=== PATIENT | male | born 1945 | race Caucasian/White ===

== ENCOUNTER → 2019-05-21 14:40 | Outpatient (CLI) | payer MEDICARE, SELFPAY ==
[2019-05-21 15:26] LABS: Add Manual Diff / Slide Review NO; Basophils Absolute Auto 100 /uL (0-100); Eosinophils Absolute Auto 200 /uL (0-450); Eosinophils Percent Auto 2.2 % (2-4); Hematocrit 41.9 % (41-53); Hemoglobin 13.5 g/dL (13.5-17.5); Lymphocytes Absolute Auto 1000 /uL (1100-4500); Lymphocytes Percent Auto 11.1 % (25-40); Mean Corpuscular HGB Conc 32.1 % (30-36); Mean Corpuscular Hemoglobin 28.9 PG (26-34); Monocytes Absolute Auto 600 /uL (0-900); Monocytes Percent Auto 6.4 % (3-14); Neutrophils Absolute Auto 7000 /uL (1500-7000); Neutrophils Percent Auto 79.3 % (50-75); Platelet Count 275 X10^3/uL (150-400); Red Blood Cell Count 4.65 X10^6/uL (4.5-5.9); Red Cell Distribution Width 17.6 % (11.6-14.8); White Blood Cell Count 8.8 X10^3/uL (4.5-11.0)
[2019-05-21 15:41] LABS: Hemoglobin A1C% w Est Avg Glu 6.1 % (4.0-6.0)
[2019-05-21 16:09] LABS: Alanine Aminotransferase 105 IU/L (<50); Albumin 3.7 g/dL (3.5-5.0); Albumin Globulin Ratio 1.6 (1.0-2.8); Alkaline Phosphatase 172 U/L (38-126); Aspartate Aminotransferase 103 IU/L (17-59); BUN Creatinine Ratio 24.4 (6-22); Bilirubin Total 0.9 mg/dL (0.2-1.3); Blood Urea Nitrogen 39 mg/dL (9-20); Calcium 9.6 mg/dL (8.4-10.2); Carbon Dioxide 25 mmol/L (22-32); Chloride 98 mmol/L (98-107); Cholesterol 127 mg/dL (140-199); Estimated Glomerular Filt Rate 42.7 mL/min (>60); Globulin 2.3 g/dL (1.7-4.1); Glucose 94 mg/dL (80-110); HDL Cholesterol 30 mg/dL (40-60); HEMOLYSIS < 15 (0-50); LDL Cholesterol Calculated 79 mg/dL (<100); Sodium 134 mmol/L (137-145); Triglycerides 88 mg/dL (35-150)
[2019-05-21 16:24] LABS: Vitamin D 25 Hydroxy (D3) 18.5 ng/mL (30.0-100.0)
[2019-05-21 16:40] LABS: Prostate Specific Antigen 1.35 ng/mL (0.10-4.00)
[2019-05-21 16:42] LABS: TSH w/ Reflex to FT4 3.87 uIU/mL (0.47-4.68)
== END ==
PROVIDERS: PCP Family Medicine; Visit Provider Family Medicine
DX: Z12.5 Encounter for screening for malignant neoplasm of prostate (principal); Z13.29 Encounter for screening for other suspected endocrine disorder; E55.9 Vitamin D deficiency, unspecified; E66.9 Obesity, unspecified; E78.5 Hyperlipidemia, unspecified; I10 Essential (primary) hypertension
CPT/HCPCS: 36415; 80053; 80061; 82306; 83036; 84153; 84443; 85025

== ENCOUNTER 2019-06-04 09:26 | Emergency (ER) | payer MEDICARE, SELFPAY ==
[2019-06-04] VITALS (12 sets, daily range): BP systolic 94–136; BP diastolic 63–89; PULSE 104–117; RESP 13–23; TEMP 37.1; O2SAT 95–100
--- NOTE | 2019-06-04 09:33 | DI.RAD.S_ITS ---
PROCEDURE: XR CHEST 1V INDICATIONS: fatigue, weakness TECHNIQUE: One view of the chest was acquired. COMPARISON: [facility], CR, XR CHEST 2VW, 03/03/2016, 7:09. FINDINGS: Surgical changes and devices: A left-sided cardiac pacer/defibrillator is again evident. Lungs and pleura: Lungs are clear. No pleural effusions or pneumothorax. Mediastinum: Mediastinal contours appear normal. Heart size is markedly enlarged. Bones and chest wall: No suspicious bony lesions. Overlying soft tissues appear unremarkable. IMPRESSION: Marked cardiomegaly without overt heart failure. Dictated by: Dc Barnes M.D. on 06/04/2019 at 9:41 Approved by: Dc Barnes M.D. on 06/04/2019 at 9:41
--- NOTE | 2019-06-04 09:33 | DI.US.S_ITS ---
PROCEDURE: US PERIPH VENOUS LOW EXTREM BI INDICATIONS: SEVERE PAIN BILATERAL LOWER EXTREMITITES TECHNIQUE: Real-time imaging, as well as color and pulse Doppler interrogation, were performed of the deep veins of both legs from the inguinal ligament to the popliteal fossa. COMPARISON: None. FINDINGS: Right: The common femoral, femoral and popliteal veins are normally compressible, and free of intraluminal thrombus. Color and pulse Doppler demonstrate normal phasic intravascular flow. There is normal augmentation response to distal compression maneuver. Left: The common femoral, femoral and popliteal veins are normally compressible, and free of intraluminal thrombus. Color and pulse Doppler demonstrate normal phasic intravascular flow. There is normal augmentation response to distal compression maneuver. IMPRESSION: No evidence of deep vein thrombosis of the bilateral lower extremities. Dictated by: Dc Barnes M.D. on 06/04/2019 at 9:24 Approved by: Dc Barnes M.D. on 06/04/2019 at 9:26
[2019-06-04 10:00] LABS: Add Manual Diff / Slide Review NO; Basophils Absolute Auto 0 /uL (0-100); Basophils Percent Auto 0.2 % (0-2); Eosinophils Absolute Auto 0 /uL (0-450); Hematocrit 48.4 % (41-53); Hemoglobin 15.7 g/dL (13.5-17.5); Lymphocytes Absolute Auto 400 /uL (1100-4500); Lymphocytes Percent Auto 1.6 % (25-40); Mean Corpuscular HGB Conc 32.4 % (30-36); Mean Corpuscular Hemoglobin 28.7 PG (26-34); Mean Corpuscular Volume 88.6 fL (80-100); Monocytes Absolute Auto 500 /uL (0-900); Monocytes Percent Auto 2.1 % (3-14); Neutrophils Absolute Auto 23500 /uL (1500-7000); Neutrophils Percent Auto 96.1 % (50-75); Platelet Count 333 X10^3/uL (150-400); Red Blood Cell Count 5.46 X10^6/uL (4.5-5.9); Red Cell Distribution Width 18.3 % (11.6-14.8); White Blood Cell Count 24.5 X10^3/uL (4.5-11.0)
[2019-06-04 10:05] LABS: INR 2.6 (0.9-1.3); Prothrombin Time 30.8 SECONDS (10.1-12.7)
[2019-06-04 10:11] LABS: Alanine Aminotransferase 591 IU/L (<50); Albumin 3.8 g/dL (3.5-5.0); Albumin Globulin Ratio 1.3 (1.0-2.8); Alkaline Phosphatase 289 U/L (38-126); Aspartate Aminotransferase 413 IU/L (17-59); BUN Creatinine Ratio 40.5 (6-22); Blood Urea Nitrogen 77 mg/dL (9-20); Calcium 9.1 mg/dL (8.4-10.2); Carbon Dioxide 30 mmol/L (22-32); Chloride 90 mmol/L (98-107); Creatine Kinase 89 U/L (55-170); Glucose 158 mg/dL (80-110); Magnesium 2.2 mg/dL (1.6-2.3); Potassium 4.7 mmol/L (3.4-5.1); Sodium 132 mmol/L (137-145); Total Protein 6.8 g/dL (6.3-8.2)
[2019-06-04 10:23] LABS: B Type Natriuretic Peptide 3200 (<100)
[2019-06-04 10:24] LABS: HEMOLYSIS < 15 (0-50)
[2019-06-04 10:27] LABS: Procalcitonin 3.73 ng/mL (<0.5)
--- NOTE | 2019-06-04 10:36 | ED_ITS ---
HPI - Neuro Symptoms/Deficit <Chance Gomez DO - Last Filed: 06/04/19 14:46> General Chief Complaint: Neuro Symptoms/Deficit Stated Complaint: Confusion, weakness Time Seen by Provider: 06/04/19 09:26 Source: EMS Mode of arrival: EMS Limitations: no limitations History of Present Illness HPI Narrative: 73-year-old male former smoker with COPD, CHF, pacemaker and history of clots presents by EMS for generalized weakness. The patient lives in a trailer at the [facility] and slid off his bed yesterday because he was weak. He was too weak to get off the ground and laid there for somewhere between 12 and 24 hours before EMS was called. He denies any injury as a consequence of his fall. Paramedics report that he was covered in urine and feces and his trailer was in significant disrepair. Patient denies any fever or chills. He says he has been feeling progressively weak and poor over the past few weeks. He denies nausea, vomiting or diarrhea. He denies any dysuria, frequency or urgency Onset (ago): week(s) Severity: moderate Quality: weak Relieving factors: none On Anticoagulants: Yes Associated symptoms: weakness Treatments Prior to Arrival: none Related Data Home Medications Medication Instructions Recorded Confirmed fluticasone furoate-vilanterol 1 inh INHALATION DAILY 06/04/19 06/04/19 [Yovany Lawrence] Previous Rx's Medication Instructions Recorded albuterol sulfate 90 mcg/actuation 2 puff INHALATION Q6H PRN #8 gram 05/09/19 aerosol inhaler apixaban 5 mg tablet 5 mg PO BID #30 tab 05/21/19 bisoprolol fumarate 10 mg tablet 10 mg PO DAILY #30 tab 05/21/19 losartan 50 mg tablet 50 mg PO DAILY #30 tab 05/21/19 budesonide-formoterol HFA 160 2 puff INHALATION BID #10.2 gram 05/24/19 mcg-4.5 mcg/actuation aerosol inhaler tramadol 50 mg tablet 50 mg PO TID #90 tab 05/29/19 furosemide 40 mg tablet 80 mg PO QID #360 tab 05/31/19 Allergies Allergy/AdvReac Type Severity Reaction Status Date / Time No Known Drug Allergies Allergy Verified 06/04/19 09:53 Review of Systems <Chance Gomez DO - Last Filed: 06/04/19 14:46> Constitutional Constitutional: Denies chills, Denies fatigue, Denies fever(s), Denies frequent falls, Denies lethargy and Denies weakness Eyes Eyes: Denies change in vision, Denies eye discharge, Denies irritation and Denies loss of vision ENT Ears, Nose, Mouth, and Throat: Denies change in voice, Denies dizziness, Denies neck pain, Denies sore throat and Denies throat swelling Cardiovascular Cardiovascular: Denies chest pain, Denies irregular heart rhythm, Denies lightheadedness, Denies palpitations, Reports dyspnea, Denies dyspnea on exertion and Denies orthopnea Respiratory Respiratory: Reports dyspnea, Denies dyspnea on exertion and Denies wheezing Gastrointestinal Gastrointestinal: Denies abdominal pain, Denies change in bowel habits, Denies diarrhea, Denies nausea and Denies vomiting Genitourinary Genitourinary: Denies hematuria, Denies flank pain, Denies urinary incontinence and Denies urinary urgency Musculoskeletal Musculoskeletal: Denies back pain, Denies muscle weakness, Denies neck pain, Denies numbness and Denies tingling Integumentary/Breasts Skin/Breast: Denies pruritus, Denies erythema, Denies rash and Denies wounds Neurologic Neurologic: Denies behavioral changes, Denies confusion, Denies dizziness, Denies frequent falls, Denies loss of vision, Denies numbness, Denies tingling and Denies weakness Psychiatric Psychiatric: Denies anxiety, Denies behavioral changes, Denies confusion, Denies depression, Denies homicidal ideation and Denies suicidal ideation Endocrine Endocrine: Denies fatigue, Denies flushing and Denies palpitations Hematologic/Lymphatic Hematologic/Lymphatic: Denies easy bruising Allergic/Immunologic Allergic/Immunologic: Denies urticaria, Denies throat swelling and Denies whee zing Patient History <Chance Gomez DO - Last Filed: 06/04/19 14:46> Medical History Allergies (Chronic) Ankle pain (Chronic) Asthma dependent on inhaled steroids (Chronic ~1969) Chicken pox (Resolved) Congestive heart failure (Acute) COPD (chronic obstructive pulmonary disease) (Chronic) Foot pain (Chronic) Hyperlipidemia (Chronic) Hypertension (Chronic) Infection of nail bed of finger of left hand (Acute) Ischemic cardiomyopathy (Acute) Measles (Resolved) Mumps (Resolved) Skin breakdown (Acute) Surgical History Pacemaker (Inactive) Family History Father Hypertension Mother Congestive heart failure Hyperlipidemia Hypertension Sister Substance abuse Sister Substance abuse Social History Smoking Status: Never smoker Smoking Status: Never smoker Exam <Chance Gomez DO - Last Filed: 06/04/19 14:46> Narrative Exam Narrative: GENERAL: [73] year old patient appears stated age. Signifi cantly obese, smells of urine. Awake and alert, GCS 15. HEAD: Atraumatic. Normocephalic. EYES: Pupils equal round and reactive. Extraocular motions intact. No scleral icterus. No injection or drainage. ENT: Nose without bleeding, purulent drainage. Throat without erythema, tonsillar hypertrophy or exudate. Airway patent. NECK: Trachea midline. Non tender CARDIOVASCULAR: Regular rate and rhythm without murmurs, gallops, or rubs. RESPIRATORY: Decreased breath sounds bilaterally, faint crackles in bilateral bases GASTROINTESTINAL: Abdomen soft, non-tender, nondistended. EXTREMITIES: 2+ pitting edema bilateral lower extremities, tense, mild erythema on the right lower extremity with a scabbed over and healing wound on the right anterior [place] which he states has been there for quite some time. BACK: Nontender without deformity or crepitance. No flank tenderness. NEURO: AOx3. SKIN: No rash or erythema of visible areas other than that which is noted above Initial Vital Signs Initial Vital Signs: Vital Signs Temperature 98.8 F 06/04/19 09:21 Pulse Rate 108 H 06/04/19 09:21 Respiratory Rate 23 06/04/19 09:21 Blood Pressure 123/89 06/04/19 09:21 Pulse Oximetry 98 06/04/19 09:21 <Saskia Rojas MD - Last Filed: 06/04/19 16:14> Initial Vital Signs Initial Vital Signs: Vital Signs Temperature 98.8 F 06/04/19 09:21 Pulse Rate 108 H 06/04/19 09:21 Respiratory Rate 23 06/04/19 09:21 Blood Pressure 123/89 06/04/19 09:21 Pulse Oximetry 98 06/04/19 09:21 Course <Chancequang Gomez DO - Last Filed: 06/04/19 14:46> Orders Ordered: ED Orders 06/04/19 09:33 US periph venous low extrem bi Stat XR chest 1V Stat 06/04/19 09:46 B Type Natriuretic Peptide Stat Complete Blood Count AUTO DIFF Stat Comprehensive Metabolic Panel Stat D Dimer Stat Lactate (Lactic Acid) Stat Magnesium Stat Partial Thromboplastin Time Stat Procalcitonin Stat Prothrombin Time INR Stat Troponin & CK Cardiac Panel Stat 06/04/19 09:52 EKG-12 Lead Stat 06/04/19 10:15 Blood Culture Stat 06/04/19 11:18 Troponin I Stat 06/04/19 11:24 UA Complete [Urinalysis and Microscopic] Stat 06/04/19 11:29 EKG-12 Lead Stat 06/04/19 11:30 CT head/brain wo con Stat 06/04/19 12:21 CT angio chest PE protocol Stat 06/05/19 05:00 Hemoglobin and Hematocrit DAILY Heparin Sodium/Dextrose (Heparin Drip) 25,000 unit in 500 mls @ 27.216 mls/hr IV CONT KENNA; Protocol Last Admin: 06/04/19 11:57 Dose: 12 units/kg/hr, 27.216 mls/hr Documented by: DENISE Discontinued Medications Aspirin (Aspirin Chew) 324 mg PO NOW ONE Stop: 06/04/19 13:04 Last Admin: 06/04/19 14:00 Dose: 324 mg Documented by: DENISE Furosemide (Lasix) 40 mg IV NOW ONE Stop: 06/04/19 10:35 Last Admin: 06/04/19 11:01 Dose: 40 mg Documented by: DENISE Heparin Sodium (Porcine) (Heparin) 5,000 unit IV NOW ONE Stop: 06/04/19 11:40 Last Admin: 06/04/19 11:57 Dose: 5,000 unit Documented by: DENISE Ceftriaxone Sodium/Dextrose (Rocephin) 2 gm in 50 mls @ 100 mls/hr IV NOW ONE Stop: 06/04/19 11:04 Last Infusion: 06/04/19 11:31 Dose: 0 mls/hr Documented by: Admin: 06/04/19 11:01 Dose: 100 mls/hr Documented by: DENISE Sodium Chloride (Normal Saline 0.9%) 2,168.61 mls @ 722.87 mls/hr 30 ml/kg infuse over 3 hr (2168.61 ml) IV NOW ONE Stop: 06/04/19 15:53 Last Admin: 06/04/19 13:50 Dose: 722.87 mls/hr Documented by: DENISE Consultations Consultation #1: Discussed case with on-call Cardiology whom requests heparin denise zayra and heparin drip and transfer to facility with cardiac care call to [facility]. NO available beds currently Possibility of severe sepsis recognized upon receipt of lactate receipt at 0946. Unclear picture. Fluids at 30mL/kg of IBW verbally ordered at 1205, patient out of department, manually entered at 1256. Mitchell called on receipt of CTA findings Vital Signs Vital signs: Vital Signs - 8 hr 06/04/19 09:21 06/04/19 10:00 06/04/19 10:30 Temperature 98.8 F Pulse Rate 108 H 109 H 110 H Respiratory Rate 23 22 21 Blood Pressure 123/89 Blood Pressure [Right Arm] 136/67 108/74 Pulse Oximetry 98 99 06/04/19 11:30 06/04/19 12:00 06/04/19 12:54 Temperature Pulse Rate 113 H 114 H 110 H Respiratory Rate 23 22 13 Blood Pressure Blood Pressure [Right Arm] 122/74 121/81 121/69 Pulse Oximetry 100 99 95 06/04/19 14:00 Temperature Pulse Rate 113 H Respiratory Rate 18 Blood Pressure Blood Pressure [Right Arm] 123/85 Pulse Oximetry 99 <Saskia Rojas MD - Last Filed: 06/04/19 16:14> Orders Ordered: ED Orders 06/04/19 09:33 US periph venous low extrem bi Stat XR chest 1V Stat 06/04/19 09:46 B Type Natriuretic Peptide Stat Complete Blood Count AUTO DIFF Stat Comprehensive Metabolic Panel Stat D Dimer Stat Lactate (Lactic Acid) Stat Magnesium Stat Partial Thromboplastin Time Stat Procalcitonin Stat Prothrombin Time INR Stat Troponin & CK Cardiac Panel Stat 06/04/19 09:52 EKG-12 Lead Stat 06/04/19 10:15 Blood Culture Stat 06/04/19 11:18 Troponin I Stat 06/04/19 11:24 UA Complete [Urinalysis and Microscopic] Stat 06/04/19 11:29 EKG-12 Lead Stat 06/04/19 11:30 CT head/brain wo con Stat 06/04/19 12:21 CT angio chest PE protocol Stat 06/05/19 05:00 Hemoglobin and Hematocrit DAILY Heparin Sodium/Dextrose (Heparin Drip) 25,000 unit in 500 mls @ 27.216 mls/hr IV CONT KENNA; Protocol Last Admin: 06/04/19 11:57 Dose: 12 units/kg/hr, 27.216 mls/hr Documented by: DENISE Discontinued Medications Aspirin (Aspirin Chew) 324 mg PO NOW ONE Stop: 06/04/19 13:04 Last Admin: 06/04/19 14:00 Dose: 324 mg Documented by: DENISE Furosemide (Lasix) 40 mg IV NOW ONE Stop: 06/04/19 10:35 Last Admin: 06/04/19 11:01 Dose: 40 mg Documented by: DENISE Heparin Sodium (Porcine) (Heparin) 5,000 unit IV NOW ONE Stop: 06/04/19 11:40 Last Admin: 06/04/19 11:57 Dose: 5,000 unit Documented by: DENISE Ceftriaxone Sodium/Dextrose (Rocephin) 2 gm in 50 mls @ 100 mls/hr IV NOW ONE Stop: 06/04/19 11:04 Last Infusion: 06/04/19 11:31 Dose: 0 mls/hr Documented by: Admin: 06/04/19 11:01 Dose: 100 mls/hr Documented by: DENISE Sodium Chloride (Normal Saline 0.9%) 2,168.61 mls @ 722.87 mls/hr 30 ml/kg infuse over 3 hr (2168.61 ml) IV NOW ONE Stop: 06/04/19 15:53 Last Admin: 06/04/19 13:50 Dose: 722.87 mls/hr Documented by: DENISE Vital Signs Vital signs: Vital Signs - 8 hr 06/04/19 09:21 06/04/19 10:00 06/04/19 10:30 Temperature 98.8 F Pulse Rate 108 H 109 H 110 H Respiratory Rate 23 22 21 Blood Pressure 123/89 Blood Pressure [Right Arm] 136/67 108/74 Pulse Oximetry 98 99 06/04/19 11:30 06/04/19 12:00 06/04/19 12:54 Temperature Pulse Rate 113 H 114 H 110 H Respiratory Rate 23 22 13 Blood Pressure Blood Pressure [Right Arm] 122/74 121/81 121/69 Pulse Oximetry 100 99 95 06/04/19 14:00 Temperature Pulse Rate 113 H Respiratory Rate 18 Blood Pressure Blood Pressure [Right Arm] 123/85 Pulse Oximetry 99 MDM - Neuro Symptoms/Deficit <Chance Gomez DO - Last Filed: 06/04/19 14:46> Lab Data Result diagrams: 06/04/19 09:46 06/04/19 09:46 Labs: Lab Results 06/04/19 06/04/19 06/04/19 Range/Units 09:46 09:46 09:46 WBC 24.5 H (4.5-11.0) X10^3/uL RBC 5.46 (4.5-5.9) X10^6/uL Hgb 15.7 (13.5-17.5) g/dL Hct 48.4 (41-53) % MCV 88.6 (80-100) fL MCH 28.7 (26-34) PG MCHC 32.4 (30-36) % RDW 18.3 H (11.6-14.8) % Plt Count 333 (150-400) X10^3/uL Neut % (Auto) 96.1 H (50-75) % Lymph % (Auto) 1.6 L (25-40) % [place] % (Auto) 2.1 L (3-14) % Eos % (Auto) 0.0 L (2-4) % Baso % (Auto) 0.2 (0-2) % Neut # (Auto) 58424 H (9257-2918) /uL Lymph # (Auto) 400 L (7317-0299) /uL [place] # (Auto) 500 (0-900) /uL Eos # (Auto) 0 (0-450) /uL Baso # (Auto) 0 (0-100) /uL PT 30.8 H (10.1-12.7) SECONDS INR 2.6 H (0.9-1.3) APTT (26.4-36.2) SECONDS D-Dimer (<230) ng/mL Sodium 132 L (137-145) mmol/L Potassium 4.7 (3.4-5.1) mmol/L Chloride 90 L (98-107) mmol/L Carbon Dioxide 30 (22-32) mmol/L BUN 77 H (9-20) mg/dL Creatinine 1.90 H (0.66-1.25) mg/dL Estimated GFR 35.0 L (>60) mL/min BUN/Creatinine Ratio 40.5 H (6-22) Glucose 158 H (80-110) mg/dL Lactate (0.7-2.1) mmol/L Calcium 9.1 (8.4-10.2) mg/dL Magnesium 2.2 (1.6-2.3) mg/dL Total Bilirubin 2.0 H (0.2-1.3) mg/dL AST 413 H (17-59) IU/L ALT 591 H (<50) IU/L Alkaline Phosphatase 289 H (38-126) U/L Total Creatine Kinase 89 (55-170) U/L CK-MB (CK-2) TNP CK-MB (CK-2) Rel Index TNP Troponin I 0.138 H* (0.01-0.034) ng/mL B-Natriuretic Peptide 3200 H (<100) Total Protein 6.8 (6.3-8.2) g/dL Albumin 3.8 (3.5-5.0) g/dL Globulin 3.0 (1.7-4.1) g/dL Albumin/Globulin Ratio 1.3 (1.0-2.8) Procalcitonin (<0.5) ng/mL Urine Color Urine Appearance Urine pH (4.5-8.0) Ur Specific [place] (1.000-1.035) Urine Protein (Negative) Urine Glucose (UA) (Negative) g/dL Urine Ketones (NEGATIVE) Urine Occult Blood (Negative) Urine Nitrate (Negative) Urine Bilirubin (NEGATIVE) Urine Urobilinogen (0.2) E.U./dL Ur Leukocyte Esterase (NEGATIVE) Urine RBC (0-5/HPF) Urine WBC (0-5/HPF) Urine Bacteria (None) Ur Culture Indicated? Micro UA Comment 06/04/19 06/04/19 06/04/19 Range/Units 09:46 09:46 09:46 WBC (4.5-11.0) X10^3/uL RBC (4.5-5.9) X10^6/uL Hgb (13.5-17.5) g/dL Hct (41-53) % MCV (80-100) fL MCH (26-34) PG MCHC (30-36) % RDW (11.6-14.8) % Plt Count (150-400) X10^3/uL Neut % (Auto) (50-75) % Lymph % (Auto) (25-40) % [place] % (Auto) (3-14) % Eos % (Auto) (2-4) % Baso % (Auto) (0-2) % Neut # (Auto) (6482-2010) /uL Lymph # (Auto) (0027-9797) /uL [place] # (Auto) (0-900) /uL Eos # (Auto) (0-450) /uL Baso # (Auto) (0-100) /uL PT (10.1-12.7) SECONDS INR (0.9-1.3) APTT 37 H (26.4-36.2) SECONDS D-Dimer (<230) ng/mL Sodium (137-145) mmol/L Potassium (3.4-5.1) mmol/L Chloride (98-107) mmol/L Carbon Dioxide (22-32) mmol/L BUN (9-20) mg/dL Creatinine (0.66-1.25) mg/dL Estimated GFR (>60) mL/min BUN/Creatinine Ratio (6-22) Glucose (80-110) mg/dL Lactate 3.0 H (0.7-2.1) mmol/L Calcium (8.4-10.2) mg/dL Magnesium (1.6-2.3) mg/dL Total Bilirubin (0.2-1.3) mg/dL AST (17-59) IU/L ALT (<50) IU/L Alkaline Phosphatase (38-126) U/L Total Creatine Kinase (55-170) U/L CK-MB (CK-2) CK-MB (CK-2) Rel Index Troponin I (0.01-0.034) ng/mL B-Natriuretic Peptide (<100) Total Protein (6.3-8.2) g/dL Albumin (3.5-5.0) g/dL Globulin (1.7-4.1) g/dL Albumin/Globulin Ratio (1.0-2.8) Procalcitonin 3.73 H (<0.5) ng/mL Urine Color Urine Appearance Urine pH (4.5-8.0) Ur Specific [place] (1.000-1.035) Urine Protein (Negative) Urine Glucose (UA) (Negative) g/dL Urine Ketones (NEGATIVE) Urine Occult Blood (Negative) Urine Nitrate (Negative) Urine Bilirubin (NEGATIVE) Urine Urobilinogen (0.2) E.U./dL Ur Leukocyte Esterase (NEGATIVE) Urine RBC (0-5/HPF) Urine WBC (0-5/HPF) Urine Bacteria (None) Ur Culture Indicated? Micro UA Comment 06/04/19 06/04/19 06/04/19 Range/Units 09:46 11:18 11:24 WBC (4.5-11.0) X10^3/uL RBC (4.5-5.9) X10^6/uL Hgb (13.5-17.5) g/dL Hct (41-53) % MCV (80-100) fL MCH (26-34) PG MCHC (30-36) % RDW (11.6-14.8) % Plt Count (150-400) X10^3/uL Neut % (Auto) (50-75) % Lymph % (Auto) (25-40) % [place] % (Auto) (3-14) % Eos % (Auto) (2-4) % Baso % (Auto) (0-2) % Neut # (Auto) (3517-7484) /uL Lymph # (Auto) (8676-7752) /uL [place] # (Auto) (0-900) /uL Eos # (Auto) (0-450) /uL Baso # (Auto) (0-100) /uL PT (10.1-12.7) SECONDS INR (0.9-1.3) APTT (26.4-36.2) SECONDS D-Dimer 1263 H (<230) ng/mL Sodium (137-145) mmol/L Potassium (3.4-5.1) mmol/L Chloride (98-107) mmol/L Carbon Dioxide (22-32) mmol/L BUN (9-20) mg/dL Creatinine (0.66-1.25) mg/dL Estimated GFR (>60) mL/min BUN/Creatinine Ratio (6-22) Glucose (80-110) mg/dL Lactate (0.7-2.1) mmol/L Calcium (8.4-10.2) mg/dL Magnesium (1.6-2.3) mg/dL Total Bilirubin (0.2-1.3) mg/dL AST (17-59) IU/L ALT (<50) IU/L Alkaline Phosphatase (38-126) U/L Total Creatine Kinase (55-170) U/L CK-MB (CK-2) CK-MB (CK-2) Rel Index Troponin I 0.123 H* (0.01-0.034) ng/mL B-Natriuretic Peptide (<100) Total Protein (6.3-8.2) g/dL Albumin (3.5-5.0) g/dL Globulin (1.7-4.1) g/dL Albumin/Globulin Ratio (1.0-2.8) Procalcitonin (<0.5) ng/mL Urine Color Yellow Urine Appearance Clear Urine pH 5.5 (4.5-8.0) Ur Specific [place] 1.010 (1.000-1.035) Urine Protein 1+ H (Negative) Urine Glucose (UA) Negative (Negative) g/dL Urine Ketones Negative (NEGATIVE) Urine Occult Blood 2+ H (Negative) Urine Nitrate Negative (Negative) Urine Bilirubin Negative (NEGATIVE) Urine Urobilinogen 0.2 (0.2) E.U./dL Ur Leukocyte Esterase Negative (NEGATIVE) Urine RBC None seen (0-5/HPF) Urine WBC None seen (0-5/HPF) Urine Bacteria None seen (None) Ur Culture Indicated? Cult not indicated Micro UA Comment Microscopic normal 06/04/19 Range/Units 12:07 WBC (4.5-11.0) X10^3/uL RBC (4.5-5.9) X10^6/uL Hgb (13.5-17.5) g/dL Hct (41-53) % MCV (80-100) fL MCH (26-34) PG MCHC (30-36) % RDW (11.6-14.8) % Plt Count (150-400) X10^3/uL Neut % (Auto) (50-75) % Lymph % (Auto) (25-40) % [place] % (Auto) (3-14) % Eos % (Auto) (2-4) % Baso % (Auto) (0-2) % Neut # (Auto) (9751-0633) /uL Lymph # (Auto) (8192-5588) /uL [place] # (Auto) (0-900) /uL Eos # (Auto) (0-450) /uL Baso # (Auto) (0-100) /uL PT (10.1-12.7) SECONDS INR (0.9-1.3) APTT (26.4-36.2) SECONDS D-Dimer (<230) ng/mL Sodium (137-145) mmol/L Potassium (3.4-5.1) mmol/L Chloride (98-107) mmol/L Carbon Dioxide (22-32) mmol/L BUN (9-20) mg/dL Creatinine (0.66-1.25) mg/dL Estimated GFR (>60) mL/min BUN/Creatinine Ratio (6-22) Glucose (80-110) mg/dL Lactate 2.3 H (0.7-2.1) mmol/L Calcium (8.4-10.2) mg/dL Magnesium (1.6-2.3) mg/dL Total Bilirubin (0.2-1.3) mg/dL AST (17-59) IU/L ALT (<50) IU/L Alkaline Phosphatase (38-126) U/L Total Creatine Kinase (55-170) U/L CK-MB (CK-2) CK-MB (CK-2) Rel Index Troponin I (0.01-0.034) ng/mL B-Natriuretic Peptide (<100) Total Protein (6.3-8.2) g/dL Albumin (3.5-5.0) g/dL Globulin (1.7-4.1) g/dL Albumin/Globulin Ratio (1.0-2.8) Procalcitonin (<0.5) ng/mL Urine Color Urine Appearance Urine pH (4.5-8.0) Ur Specific [place] (1.000-1.035) Urine Protein (Negative) Urine Glucose (UA) (Negative) g/dL Urine Ketones (NEGATIVE) Urine Occult Blood (Negative) Urine Nitrate (Negative) Urine Bilirubin (NEGATIVE) Urine Urobilinogen (0.2) E.U./dL Ur Leukocyte Esterase (NEGATIVE) Urine RBC (0-5/HPF) Urine WBC (0-5/HPF) Urine Bacteria (None) Ur Culture Indicated? Micro UA Comment <Saskia Rojas MD - Last Filed: 06/04/19 16:14> Medical Records Attestation: I reviewed the patient's medical records. Lab Data Attestation: I reviewed the patient's lab results. Lab results narrative: Leukocytosis, Elevated troponin at 0.138 trending down at 3 hours recheck to .123, currently on heparin BNP is 3200 Procalcitonin is elevated Urine does not suggest UTI Labs: Lab Results 06/04/19 06/04/19 06/04/19 Range/Units 09:46 09:46 09:46 WBC 24.5 H (4.5-11.0) X10^3/uL RBC 5.46 (4.5-5.9) X10^6/uL Hgb 15.7 (13.5-17.5) g/dL Hct 48.4 (41-53) % MCV 88.6 (80-100) fL MCH 28.7 (26-34) PG MCHC 32.4 (30-36) % RDW 18.3 H (11.6-14.8) % Plt Count 333 (150-400) X10^3/uL Neut % (Auto) 96.1 H (50-75) % Lymph % (Auto) 1.6 L (25-40) % [place] % (Auto) 2.1 L (3-14) % Eos % (Auto) 0.0 L (2-4) % Baso % (Auto) 0.2 (0-2) % Neut # (Auto) 40922 H (6471-2180) /uL Lymph # (Auto) 400 L (1882-7737) /uL [place] # (Auto) 500 (0-900) /uL Eos # (Auto) 0 (0-450) /uL Baso # (Auto) 0 (0-100) /uL PT 30.8 H (10.1-12.7) SECONDS INR 2.6 H (0.9-1.3) APTT (26.4-36.2) SECONDS D-Dimer (<230) ng/mL Sodium 132 L (137-145) mmol/L Potassium 4.7 (3.4-5.1) mmol/L Chloride 90 L (98-107) mmol/L Carbon Dioxide 30 (22-32) mmol/L BUN 77 H (9-20) mg/dL Creatinine 1.90 H (0.66-1.25) mg/dL Estimated GFR 35.0 L (>60) mL/min BUN/Creatinine Ratio 40.5 H (6-22) Glucose 158 H (80-110) mg/dL Lactate (0.7-2.1) mmol/L Calcium 9.1 (8.4-10.2) mg/dL Magnesium 2.2 (1.6-2.3) mg/dL Total Bilirubin 2.0 H (0.2-1.3) mg/dL AST 413 H (17-59) IU/L ALT 591 H (<50) IU/L Alkaline Phosphatase 289 H (38-126) U/L Total Creatine Kinase 89 (55-170) U/L CK-MB (CK-2) TNP CK-MB (CK-2) Rel Index TNP Troponin I 0.138 H* (0.01-0.034) ng/mL B-Natriuretic Peptide 3200 H (<100) Total Protein 6.8 (6.3-8.2) g/dL Albumin 3.8 (3.5-5.0) g/dL Globulin 3.0 (1.7-4.1) g/dL Albumin/Globulin Ratio 1.3 (1.0-2.8) Procalcitonin (<0.5) ng/mL Urine Color Urine Appearance Urine pH (4.5-8.0) Ur Specific [place] (1.000-1.035) Urine Protein (Negative) Urine Glucose (UA) (Negative) g/dL Urine Ketones (NEGATIVE) Urine Occult Blood (Negative) Urine Nitrate (Negative) Urine Bilirubin (NEGATIVE) Urine Urobilinogen (0.2) E.U./dL Ur Leukocyte Esterase (NEGATIVE) Urine RBC (0-5/HPF) Urine WBC (0-5/HPF) Urine Bacteria (None) Ur Culture Indicated? Micro UA Comment 06/04/19 06/04/19 06/04/19 Range/Units 09:46 09:46 09:46 WBC (4.5-11.0) X10^3/uL RBC (4.5-5.9) X10^6/uL Hgb (13.5-17.5) g/dL Hct (41-53) % MCV (80-100) fL MCH (26-34) PG MCHC (30-36) % RDW (11.6-14.8) % Plt Count (150-400) X10^3/uL Neut % (Auto) (50-75) % Lymph % (Auto) (25-40) % [place] % (Auto) (3-14) % Eos % (Auto) (2-4) % Baso % (Auto) (0-2) % Neut # (Auto) (4127-3933) /uL Lymph # (Auto) (2660-4910) /uL [place] # (Auto) (0-900) /uL Eos # (Auto) (0-450) /uL Baso # (Auto) (0-100) /uL PT (10.1-12.7) SECONDS INR (0.9-1.3) APTT 37 H (26.4-36.2) SECONDS D-Dimer (<230) ng/mL Sodium (137-145) mmol/L Potassium (3.4-5.1) mmol/L Chloride (98-107) mmol/L Carbon Dioxide (22-32) mmol/L BUN (9-20) mg/dL Creatinine (0.66-1.25) mg/dL Estimated GFR (>60) mL/min BUN/Creatinine Ratio (6-22) Glucose (80-110) mg/dL Lactate 3.0 H (0.7-2.1) mmol/L Calcium (8.4-10.2) mg/dL Magnesium (1.6-2.3) mg/dL Total Bilirubin (0.2-1.3) mg/dL AST (17-59) IU/L ALT (<50) IU/L Alkaline Phosphatase (38-126) U/L Total Creatine Kinase (55-170) U/L CK-MB (CK-2) CK-MB (CK-2) Rel Index Troponin I (0.01-0.034) ng/mL B-Natriuretic Peptide (<100) Total Protein (6.3-8.2) g/dL Albumin (3.5-5.0) g/dL Globulin (1.7-4.1) g/dL Albumin/Globulin Ratio (1.0-2.8) Procalcitonin 3.73 H (<0.5) ng/mL Urine Color Urine Appearance Urine pH (4.5-8.0) Ur Specific [place] (1.000-1.035) Urine Protein (Negative) Urine Glucose (UA) (Negative) g/dL Urine Ketones (NEGATIVE) Urine Occult Blood (Negative) Urine Nitrate (Negative) Urine Bilirubin (NEGATIVE) Urine Urobilinogen (0.2) E.U./dL Ur Leukocyte Esterase (NEGATIVE) Urine RBC (0-5/HPF) Urine WBC (0-5/HPF) Urine Bacteria (None) Ur Culture Indicated? Micro UA Comment 06/04/19 06/04/19 06/04/19 Range/Units 09:46 11:18 11:24 WBC (4.5-11.0) X10^3/uL RBC (4.5-5.9) X10^6/uL Hgb (13.5-17.5) g/dL Hct (41-53) % MCV (80-100) fL MCH (26-34) PG MCHC (30-36) % RDW (11.6-14.8) % Plt Count (150-400) X10^3/uL Neut % (Auto) (50-75) % Lymph % (Auto) (25-40) % [place] % (Auto) (3-14) % Eos % (Auto) (2-4) % Baso % (Auto) (0-2) % Neut # (Auto) (5650-0798) /uL Lymph # (Auto) (0990-5908) /uL [place] # (Auto) (0-900) /uL Eos # (Auto) (0-450) /uL Baso # (Auto) (0-100) /uL PT (10.1-12.7) SECONDS INR (0.9-1.3) APTT (26.4-36.2) SECONDS D-Dimer 1263 H (<230) ng/mL Sodium (137-145) mmol/L Potassium (3.4-5.1) mmol/L Chloride (98-107) mmol/L Carbon Dioxide (22-32) mmol/L BUN (9-20) mg/dL Creatinine (0.66-1.25) mg/dL Estimated GFR (>60) mL/min BUN/Creatinine Ratio (6-22) Glucose (80-110) mg/dL Lactate (0.7-2.1) mmol/L Calcium (8.4-10.2) mg/dL Magnesium (1.6-2.3) mg/dL Total Bilirubin (0.2-1.3) mg/dL AST (17-59) IU/L ALT (<50) IU/L Alkaline Phosphatase (38-126) U/L Total Creatine Kinase (55-170) U/L CK-MB (CK-2) CK-MB (CK-2) Rel Index Troponin I 0.123 H* (0.01-0.034) ng/mL B-Natriuretic Peptide (<100) Total Protein (6.3-8.2) g/dL Albumin (3.5-5.0) g/dL Globulin (1.7-4.1) g/dL Albumin/Globulin Ratio (1.0-2.8) Procalcitonin (<0.5) ng/mL Urine Color Yellow Urine Appearance Clear Urine pH 5.5 (4.5-8.0) Ur Specific [place] 1.010 (1.000-1.035) Urine Protein 1+ H (Negative) Urine Glucose (UA) Negative (Negative) g/dL Urine Ketones Negative (NEGATIVE) Urine Occult Blood 2+ H (Negative) Urine Nitrate Negative (Negative) Urine Bilirubin Negative (NEGATIVE) Urine Urobilinogen 0.2 (0.2) E.U./dL Ur Leukocyte Esterase Negative (NEGATIVE) Urine RBC None seen (0-5/HPF) Urine WBC None seen (0-5/HPF) Urine Bacteria None seen (None) Ur Culture Indicated? Cult not indicated Micro UA Comment Microscopic normal 06/04/19 Range/Units 12:07 WBC (4.5-11.0) X10^3/uL RBC (4.5-5.9) X10^6/uL Hgb (13.5-17.5) g/dL Hct (41-53) % MCV (80-100) fL MCH (26-34) PG MCHC (30-36) % RDW (11.6-14.8) % Plt Count (150-400) X10^3/uL Neut % (Auto) (50-75) % Lymph % (Auto) (25-40) % [place] % (Auto) (3-14) % Eos % (Auto) (2-4) % Baso % (Auto) (0-2) % Neut # (Auto) (7041-5375) /uL Lymph # (Auto) (9894-3496) /uL [place] # (Auto) (0-900) /uL Eos # (Auto) (0-450) /uL Baso # (Auto) (0-100) /uL PT (10.1-12.7) SECONDS INR (0.9-1.3) APTT (26.4-36.2) SECONDS D-Dimer (<230) ng/mL Sodium (137-145) mmol/L Potassium (3.4-5.1) mmol/L Chloride (98-107) mmol/L Carbon Dioxide (22-32) mmol/L BUN (9-20) mg/dL Creatinine (0.66-1.25) mg/dL Estimated GFR (>60) mL/min BUN/Creatinine Ratio (6-22) Glucose (80-110) mg/dL Lactate 2.3 H (0.7-2.1) mmol/L Calcium (8.4-10.2) mg/dL Magnesium (1.6-2.3) mg/dL Total Bilirubin (0.2-1.3) mg/dL AST (17-59) IU/L ALT (<50) IU/L Alkaline Phosphatase (38-126) U/L Total Creatine Kinase (55-170) U/L CK-MB (CK-2) CK-MB (CK-2) Rel Index Troponin I (0.01-0.034) ng/mL B-Natriuretic Peptide (<100) Total Protein (6.3-8.2) g/dL Albumin (3.5-5.0) g/dL Globulin (1.7-4.1) g/dL Albumin/Globulin Ratio (1.0-2.8) Procalcitonin (<0.5) ng/mL Urine Color Urine Appearance Urine pH (4.5-8.0) Ur Specific [place] (1.000-1.035) Urine Protein (Negative) Urine Glucose (UA) (Negative) g/dL Urine Ketones (NEGATIVE) Urine Occult Blood (Negative) Urine Nitrate (Negative) Urine Bilirubin (NEGATIVE) Urine Urobilinogen (0.2) E.U./dL Ur Leukocyte Esterase (NEGATIVE) Urine RBC (0-5/HPF) Urine WBC (0-5/HPF) Urine Bacteria (None) Ur Culture Indicated? Micro UA Comment Imaging Data CTA chest: Radiologist's impression: IMPRESSION: 1. Possible small filling defect in the right lower lobe lateral basal segmental artery suggesting small pulmonary embolus. A differential diagnosis is artifact from respiratory motions. 2. Moderate cardiomegaly. 3. Coronary artery atherosclerosis. 4. Small hiatal hernia. 5. A 3 mm noncalcified nodule in the right upper lobe. Please see enclosed followup recommendation. 6. Remote granulomatous disease. The results were discussed with Dr. Gomez. Fleischner Society criteria for SOLID lung nodule followup. Nodule size (mm)Low-risk patientHigh-risk patient?4No follow-up neededFollow-up at 12 mo; if no change, no further follow-up>[id number] CT at 12 mo; if no change, no further follow-up needed.Initial follow-up CT at 6-12 mo, then 18-24 mo if no change. >6-8Initial follow-up CT at 6-12 mo, then 18-24 mo if no change. Initial follow- up CT at 3-6 mo, then 9-12 mo and 24 mo if no change. >8Follow-up CT at 3, 9, 24 mo. Or PET and/or biopsy.Same as for low-risk pts. Dictated by: Kt Rios M.D. on 06/04/2019 at 12:43 Chest x-ray: Radiologist's impression: IMPRESSION: Marked cardiomegaly without overt heart failure. Dictated by: Dc Barnes M.D. on 06/04/2019 at 9:41 Bilateral lower extremity ultrasound: Radiologist's impression: IMPRESSION: No evidence of deep vein thrombosis of the bilateral lower extremities. Dictated by: Dc Barnes M.D. on 06/04/2019 at 9:24 CT scan - head: Radiologist's impression: IMPRESSION: 1. Volume loss and small vessel ischemic disease. 2. No acute process. Dictated by: Jairo Haq M.D. on 06/04/2019 at 11:35 ECG Data Attestation: I personally reviewed and interpreted this ECG as follows: Interpretation: Ventricular rate of 108, paced MDM Narrative Medical decision making narrative: 73-year-old gentleman with increasing weakness and failure to thrive. Significant leukocytosis, elevated BNP and elevated D-dimer. He is currently paced and has no obvious acute ischemia on his EKG however initial troponin was slightly elevated of note that is trending down. He was treated for sepsis with fluids and antibiotics and started on heparin with concern for acute coronary syndrome. CTA of the chest suggests possibility of a small filling defect in the right lower lobe that could be a small pulmonary embolus but could also be artifact. Chest x-ray and CT scan do not suggest significant volume overload nor obvious pneumonia. Urinalysis does not suggest a UTI. CT scan of the head does not show any bleeding or obvious changes. 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 Working on transfer to [facility] Spoke with Dr. Pop, hospitalist as [facility]. Accepts the patient. Will arrange ALS transport Stable at time of transport Discharge Plan Departure Patient Disposition: [facility] Clinical Impression: Weakness Leukocytosis Qualifiers: Leukocytosis type: unspecified Qualified Code(s): D72.829 - Elevated white blood cell count, unspecified Prescriptions: No Action tramadol 50 mg tablet 50 mg PO TID Qty: 90 RF: 0 furosemide 40 mg tablet 80 mg PO QID Qty: 360 RF: 5 albuterol sulfate 90 mcg/actuation HFA aerosol inhaler 2 puff INHALATION Q6H PRN (Reason: shortness of breath or wheezing) Qty: 8 RF: 4 Eliquis 5 mg tablet 5 mg PO BID Qty: 30 RF: 5 bisoprolol fumarate 10 mg tablet 10 mg PO DAILY Qty: 30 RF: 5 losartan 50 mg tablet 50 mg PO DAILY Qty: 30 RF: 5 Symbicort 160-4.5 mcg/actuation HFA aerosol inhaler 2 puff INHALATION BID Qty: 10.2 RF: 0 Breo Ellipta 200-25 mcg/dose blister with device 1 inh INHALATION DAILY RF: 0 Referrals: Morgan Preciado DO [Primary Care Provider] -
[2019-06-04 10:49] LABS: Troponin I 0.138 ng/mL (0.01-0.034)
[2019-06-04] MEDS: FUROSEMIDE 40 MG/4 ML VIAL IV (11:01)
[2019-06-04] MEDS: CEFTRIAXONE 2 GM/50 ML FROZ.PIGGY IV (11:01)
--- NOTE | 2019-06-04 11:17 | PC.NURSE ---
for 2nd trop
[2019-06-04 11:26] LABS: Bacteria Urine None Seen; RBC Urine None Seen (0-5/HPF); WBC Urine None Seen (0-5/HPF)
[2019-06-04 11:27] LABS: Appearance Urine UA CLEAR; Bilirubin Urine UA NEGATIVE (NEGATIVE); Color Urine UA YELLOW; Glucose Urine UA NEGATIVE (Negative); Ketones Urine UA NEGATIVE (NEGATIVE); Leukocyte Esterase Urine UA NEGATIVE (NEGATIVE); Nitrite Urine UA NEGATIVE (Negative); Occult Blood Urine UA 2+ (Negative); Protein Urine UA 1+ (Negative); Urobilinogen Urine UA 0.2 E.U./dL (0.2); pH Urine UA 5.5 (4.5-8.0)
--- NOTE | 2019-06-04 11:30 | DI.CT.S_ITS ---
PROCEDURE: CT HEAD/BRAIN WO CON INDICATIONS: confusion, weakness TECHNIQUE: Noncontrast 4.5 mm thick angled axial sections acquired from the foramen magnum to the vertex, with coronal and sagittal reformats. For radiation dose reduction, the following was used: automated exposure control, adjustment of mA and/or kV according to patient size. COMPARISON: None. FINDINGS: Image quality: Excellent. CSF spaces: Basal cisterns are patent. No extra-axial fluid collections. The ventricles are symmetric in size and shape. Brain: No intracranial bleeds or masses. There is cerebral volume loss for age, with resultant ventricular and sulcal prominence. There are periventricular and deep white matter chronic small vessel ischemic changes. There is intracranial internal carotid artery atherosclerosis. Skull and face: Calvarium and visualized facial bones appear intact, without suspicious lesions. Sinuses: Visualized sinuses and mastoids are clear. IMPRESSION: 1. Volume loss and small vessel ischemic disease. 2. No acute process. Dictated by: Jairo Haq M.D. on 06/04/2019 at 11:35 Approved by: Jairo Haq M.D. on 06/04/2019 at 11:36
[2019-06-04 11:37] LABS: Culture Indicated Urine Cult Not Indicated; Urine Comments Microscopic Normal
[2019-06-04 11:50] LABS: Troponin I 0.123 ng/mL (0.01-0.034)
[2019-06-04 11:54] LABS: Reflexed Lactate in 2 Hours Y
[2019-06-04 11:55] LABS: PTT Partial Thromboplastin Tim 37 SECONDS (26.4-36.2)
[2019-06-04] MEDS: HEPARIN DRIP 25,000 UNIT/500 ML IV.SOLN 27.216 UNIT IV (11:57)
[2019-06-04] MEDS: HEPARIN 5,000 UNIT/ML VIAL 5000 UNIT IV (11:57)
[2019-06-04 12:15] LABS: D Dimer 1263 ng/mL (<230)
--- NOTE | 2019-06-04 12:21 | DI.CT.S_ITS ---
PROCEDURE: CT ANGIO CHEST PE PROTOCOL INDICATIONS: CP, SOB, critical DDImer TECHNIQUE: After the administration of intravenous contrast, 2 mm thick sections acquired from the pulmonary apices to the posterior costophrenic angles. 3-dimensional maximum intensity projection (MIP) coronal and sagittal reformats were then acquired through the thorax. For radiation dose reduction, the following was used: automated exposure control, adjustment of mA and/or kV according to patient size. COMPARISON: [facility], CR, XR CHEST 1V, 06/04/2019, 10:29. FINDINGS: Image quality: Suboptimal due to respiratory motion artifacts. Pulmonary arteries: Possible filling defect in the right lower lobe lateral basal segmental artery. Pulmonary arteries are normal in size, and demonstrate no intraluminal filling defects to suggest central pulmonary embolism. Lungs and pleura: There are calcified nodules in the right lower lobe, consistent with old granulomas. A 3 mm noncalcified nodule seen in the right upper lobe (series 5 image 48).. Lungs are clear. No pleural effusions or pneumothorax. Central and peripheral airways are patent. Mediastinum: Heart size is moderately increased, without pericardial effusion. Moderate coronary artery calcification consistent with atherosclerosis. No mediastinal or hilar adenopathy. Thoracic aorta is normal in caliber and enhancement. Esophagus is normal in caliber. Small hiatal hernia. Bones and chest wall: No suspicious bony lesions. Ribs and thoracic spine appear intact throughout. Thyroid gland is normal. No axillary or supraclavicular adenopathy. There is a cardiac pacemaker in the left anterior chest. Abdomen: Visualized upper abdominal solid organs appear normal in the early arterial phase of enhancement. IMPRESSION: 1. Possible small filling defect in the right lower lobe lateral basal segmental artery suggesting small pulmonary embolus. A differential diagnosis is artifact from respiratory motions. 2. Moderate cardiomegaly. 3. Coronary artery atherosclerosis. 4. Small hiatal hernia. 5. A 3 mm noncalcified nodule in the right upper lobe. Please see enclosed followup recommendation. 6. Remote granulomatous disease. The results were discussed with Dr. Gomez. Fleischner Society criteria for SOLID lung nodule followup. Nodule size (mm)Low-risk patientHigh-risk patient?4No follow-up neededFollow-up at 12 mo; if no change, no further follow-up>[id number] CT at 12 mo; if no change, no further follow-up needed.Initial follow-up CT at 6-12 mo, then 18-24 mo if no change. >6-8Initial follow-up CT at 6-12 mo, then 18-24 mo if no change. Initial follow-up CT at 3-6 mo, then 9-12 mo and 24 mo if no change. >8Follow-up CT at 3, 9, 24 mo. Or PET and/or biopsy.Same as for low-risk pts. Dictated by: Kt Rios M.D. on 06/04/2019 at 12:43 Approved by: Kt Rios M.D. on 06/04/2019 at 13:01
[2019-06-04 12:24] LABS: Lactate 2HR (Lactic Acid Rflx) 2.3 mmol/L (0.7-2.1)
[2019-06-04] MEDS: SODIUM CHLORIDE 0.9% 722.87 ML IV (13:50)
[2019-06-04] MEDS: ASPIRIN 81 MG CHEW TAB 324 MG PO (14:00)
--- NOTE | 2019-06-04 17:06 | PC.NURSE ---
called and spoke with Margy , updated with pts status, with pts permission.
[2019-06-05 09:34] LABS: Acinetobacter baumannii Not Detected (Not Detect); E. coli Not Detected (Not Detect); Enterobacter cloacae complex Not Detected (Not Detect); Enterobacteriaceae species Not Detected (Not Detect); Enterococcus species Not Detected (Not Detect); KPC (carbapenem-resist gene) Not Detected (Not Detect); Listeria monocytogenes Not Detected (Not Detect); Methicillin-resistant gene Not Detected (Not Detect); Staphylococcus species Not Detected (Not Detect); Streptococcus agalactiae (Gr B Not Detected (Not Detect); Streptococcus pneumonia Not Detected (Not Detect); Streptococcus pyogenes (Gr A) Not Detected (Not Detect); Streptococcus species Not Detected (Not Detect); Vancomycin-rest genes A/B Not Detected (Not Detect)
[2019-06-05 09:35] LABS: Candida albicans Not Detected (Not Detect); Candida glabrata Not Detected (Not Detect); Candida krusei Not Detected (Not Detect); Candida parapsilosis Not Detected (Not Detect); Candida tropicalis Not Detected (Not Detect); Haemophilus influenzae Not Detected (Not Detect); Neisseria meningitidis Not Detected (Not Detect); Proteus species Not Detected (Not Detect); Pseudomonas aeruginosa Detected (Not Detect); Serratia marcescens Not Detected (Not Detect)
== END 2019-06-04 18:03 | disposition short-term general hospital (02) ==
PROVIDERS: Emergency Medicine; Emergency Provider Emergency Medicine; PCP Family Medicine
DX: D72.829 Elevated white blood cell count, unspecified (principal); R53.1 Weakness
CPT/HCPCS: 36415; 70450; 71045; 71275; 80053; 81001; 82550; 83605; 83735; 83880; 84145; 84484; 85025; 85379; 85610; 85730; 87040; 87150; 87186; 87205; 93005; 93010; 93041; 93970; 96365; 96366; 96375; 96376; 99284; 99285; J0696; J1644; J1940; Q9967

== ENCOUNTER → 2019-06-26 13:04 | Outpatient (CLI) | payer MEDICARE, SELFPAY | PROVIDERS: PCP Family Medicine; Visit Provider Family Medicine | DX: I87.2 Venous insufficiency (chronic) (peripheral) (principal); L97.811 Non-pressure chronic ulcer of other part of right lower leg limited to breakdown of skin; L30.8 Other specified dermatitis | CPT/HCPCS: 97597; 99203; 99213 ==